=== PATIENT | male | born 1940 | race Caucasian/White ===

== ENCOUNTER 2025-03-17 08:08 | Emergency (ER) | payer OTHER ==
[~2025-03-17] VITALS: Ht 172.7 cm; Wt 63.5 kg
[2025-03-17 08:42] LABS: BASOPHILS % (AUTO) 0.4 % (0.0-2.0); EOSINOPHILS # (AUTO) 0.1 K/uL (0.0-0.7); EOSINOPHILS % (AUTO) 0.8 % (0.0-7.0); HEMOGLOBIN 10.7 g/dL (12.5-16.3); LYMPHOCYTES # (AUTO) 0.6 K/uL (0.8-4.8); LYMPHOCYTES % (AUTO) 7.4 % (20.5-51.5); MEAN CORPUSCULAR HGB CONC 34 g/dL (32.5-36.3); MEAN CORPUSCULAR VOLUME 86.5 fL (73.0-96.2); MONOCYTES # (AUTO) 0.5 K/uL (0.1-1.30); MONOCYTES % (AUTO) 5.9 % (0.0-11.0); NEUTROPHILS # (AUTO) 7.2 K/uL (1.8-8.9); NEUTROPHILS % (AUTO) 85.5 % (38.5-71.5); PLATELET COUNT (AUTO) 327 K/uL (152-348); RED BLOOD CELL COUNT(AUTO) 3.69 MIL/uL (4.06-5.63); WHITE BLOOD COUNT (AUTO) 8.4 K/uL (3.6-10.2)
[2025-03-17 09:06] LABS: ALANINE AMINOTRANSFERASE 11 U/L (16-63); ALBUMIN 2.5 g/dL (3.4-5.0); ALKALINE PHOSPHATASE 73 U/L (50-136); ASPARTATE AMINOTRANSFERASE 10 U/L (15-37); BILIRUBIN,DIRECT 0.2 mg/dL (0.0-0.2); BILIRUBIN,TOTAL 0.5 mg/dL (0.2-1.0); CALCIUM 9.6 mg/dL (8.5-10.1); CARBON DIOXIDE 28 mmol/L (21-32); CHLORIDE 105 mmol/L (98-107); CREATININE 1.6 mg/dL (0.6-1.3); GLUCOSE 112 mg/dL (74-106); NT-PRO BNP 491 pg/mL (0-125); POTASSIUM 4.5 mmol/L (3.5-5.1); SODIUM SERUM 139 mmol/L (136-145); TOTAL PROTEIN, SERUM 6.5 g/dL (6.4-8.2); UREA NITROGEN, BLOOD 22 mg/dL (7-18)
[2025-03-17 09:11] LABS: DIFFERENTIAL COMMENT 1
[2025-03-17] MEDS ORDERED: MAGN400O6 PO (11:07)
[2025-03-17] MEDS ORDERED: ACET325T53 PO (11:07)
[2025-03-17] MEDS ORDERED: DIPH1TAB28 PO (11:07)
[2025-03-17] MEDS ORDERED: FINA5TAB11 PO (11:07)
[2025-03-17] MEDS ORDERED: TAMS-3 PO (11:07)
[2025-03-17] MEDS ORDERED: HYDROCODONE/APAP 10-325 MG TABLET ONE (11:30)
[2025-03-17] MEDS: HYDROCODONE/APAP 10-325 MG TABLET PO ONE (11:30)
[2025-03-17 11:45] VITALS: O2SAT 98
== END 2025-03-17 12:24 | disposition home or self-care (01) ==
LOC: ER 08:08
DX: C79.51 Secondary malignant neoplasm of bone (principal); N40.0 Benign prostatic hyperplasia without lower urinary tract symptoms; C61 Malignant neoplasm of prostate; K50.90 Crohn's disease, unspecified, without complications; N18.9 Chronic kidney disease, unspecified; M25.552 Pain in left hip; R07.9 Chest pain, unspecified; Z87.440 Personal history of urinary (tract) infections; Z87.39 Personal history of other diseases of the musculoskeletal system and connective tissue
CPT/HCPCS: 36415; 71045; 72192; 84484; 85025; 85651; 85730; 86140; A4606; A4663